=== PATIENT | male | born 1960 | race Caucasian/White ===

== ENCOUNTER 2019-03-06 01:30 | Emergency (ER) | payer MEDICARE, SELFPAY ==
[2019-03-06 01:31] VITALS: BP 134/86; PULSE 89; RESP 16; TEMP 36.7; O2SAT 96; BMI 21.6
--- NOTE | 2019-03-06 02:07 | ED.DCSUM_ITS ---
History of Present Illness Chief Complaint: Mental Health Informant: Patient, Family Onset: - - 3 to 4 days Narrative: Patient presents with daughter. Patient has a history of bipolar disorder and is on Risperdal. They were in [place] last week visiting family and daughter states that he was doing very well. After returning home she has noted change in his behavior. He has not been able to sleep for the last 3 or 4 days and seems to be more anxious and antsy. He does note that he has not taken his Risperdal for at least 2 days. He did take a dose before coming into night. Daughter wanted the patient to be evaluated just to ensure there is nothing else going on. - Past Medical History (1) Bipolar disorder Status: Acute (2) Hypothyroidism Status: Acute Past Medical History - Allergies and Home Meds Allergies/Adverse Reactions: Allergies No Known Allergies Allergy (Verified 03/06/19 01:33) Primary Care Physician: Joe Landry III, MD [Primary Care Provider] - Prior records reviewed: Yes Past Medical History: - - Reviewed Smoking Status: Current every day smoker Review of Systems General: Denies: Chills, Fever Cardiovascular: Denies: Chest pain, Palpitations Respiratory: Denies: Dyspnea, Cough, Sputum Gastrointestinal: Denies: Abdominal pain, Nausea, Vomiting, Diarrhea Musculoskeletal: Reports: Myalgias Psych: Reports: Anxiety Physical Exam Vital Signs/Narrative: Vital Signs Temp Pulse Resp BP Pulse Ox 03/06/19 01:31 98.0 F 89 16 134/86 H 96 General: Well nourished, Well developed Neck: Supple Cardiovascular: Regular rate, Regular rhythm Respiratory: No distress, CTA bilaterally Abdomen: Soft, Nontender Neurological: Alert Psychological: - - Patient appears somewhat anxious and is rating his hands frequently. He is attentive and answers questions appropriately. He denies current hallucinations to me, but states his daughter tells him sometimes he talks to people that are not there. Diagnostic/Tx/Re-eval Laboratory Tests 03/06/19 03/06/19 03/06/19 Range/Units 03:10 02:15 02:15 WBC 5.9 (4.4-11.0) K/mm3 RBC 3.72 L (4.6-6.2) M/mm3 Hgb 11.9 L (13.0-16.5) g/dl Hct 35.0 L (40-54) % MCV 94.1 H (80-94) fL MCH 32.0 (27.0-32.0) pg MCHC 34.0 (32-36) g/gl RDW 13.5 (11.6-14.6) % RDW Differential 44.6 H (35.1-43.9) fl Plt Count 297 (150-450) K/mm3 MPV 8.2 (6.2-12.0) fl Immature Gran % (Auto) 0.000 (0.0-0.9) % Neut % (Auto) 45.9 L (47-70) % Lymph % (Auto) 35.7 (19-41) % Tucker % (Auto) 13.5 H (0-10) % Eos % (Auto) 4.2 (0-5) % Baso % (Auto) 0.7 (0-1) % Absolute Neuts (auto) 2.7 (2.0-7.7) X10^3/uL Absolute Lymphs (auto) 2.11 (0.83-4.51) X10^3/ul Total Counted Not Reportable Sodium 140 (136-145) mmol/L Potassium 3.8 (3.5-5.1) mmol/L Chloride 107 (98-107) mmol/L Carbon Dioxide 27.0 (21.0-32.0) mmol/L Anion Gap 6 (5-15) BUN 14 (7-18) mg/dL Creatinine 0.95 (0.70-1.30) mg/dL Estim Creat Clear Calc 84.16 ml/min Est GFR (MDRD) Af Amer 104 (>60) mL/min Est GFR (MDRD) Non-Af 86 (>60) mL/min BUN/Creatinine Ratio 14.7 (10-20) RATIO Glucose 91 (74-106) mg/dL Calcium 8.8 (8.5-10.1) mg/dL Urine Color Yellow (Yellow) Urine Clarity Clear (Clear) Urine pH 6.0 (5.0 - 8.0) Ur Specific Mobile 1.015 (1.002-1.030) Urine Protein Negative (Negative) mg/dl Urine Glucose (UA) Normal (Normal) mg/dl Urine Ketones Negative (Negative) mg/dl Urine Occult Blood Negative (Negative) /ul Urine Nitrite Negative (Negative) Urine Bilirubin Negative (Negative) mg/dL Urine Urobilinogen Normal (Normal) mg/dl Ur Leukocyte Esterase Negative (Negative) /ul Urine RBC 0 SEEN (0-5) /hpf Urine WBC 0 SEEN (0-5) /hpf Ur Squamous Epith Cells 0 SEEN (0-5) /hpf Urine Bacteria RARE (None Seen) /hpf Urine Mucus RARE (<or=2+) /hpf - Medical Decision Making On repeat evaluation patient is sleeping comfortably. Daughter states he does seem to be improving. She will ensure that he gets his Risperdal. I did speak with Letha, the counselor from the counseling center that was here [facility]. She was given the patient's information. They will follow-up with him. ED Disposition - Plan for ED Patient: Disposition: Home or Assisted Living Diagnosis: Bipolar 1 disorder Instructions: Bipolar Disorder Referrals: Joe Landry III, MD [Primary Care Provider] - Counseling,Center [GROUP OF PHYSICIANS] - 1-2 Days if not improving
[2019-03-06] MEDS: 0.9% Normal Saline 1,000 ML 1000 ML IV (02:22)
[2019-03-06 02:26] LABS: Absolute Lymphocyte Count 2.11 X10^3/ul (0.83-4.51); Absolute Neutrophil Count 2.7 X10^3/uL (2.0-7.7); Basophil# 0.04 X10^3/uL; Basophil% 0.7 % (0-1); Eosinophil# 0.25 X10^3/uL; Eosinophils% 4.2 % (0-5); Hemoglobin 11.9 g/dl (13.0-16.5); Lymphocyte # 2.11 X10^3/ul (4.0); Lymphocyte % 35.7 % (19-41); Mean Corpuscular Volume 94.1 fL (80-94); Mean Platelet Vol. 8.2 fl (6.2-12.0); Monocyte% 13.5 % (0-10); Neutrophil # 2.71 X10^3/uL (2.7-7.7); Neutrophil % 45.9 % (47-70); POSITIVE COUNT NO; POSITIVE DIFFERENTIAL NO; POSITIVE MORPHOLOGY NO; Platelet Count 297 K/mm3 (150-450); RBC Distribution Width CV 13.5 % (11.6-14.6); RBC Distribution Width SD 44.6 fl (35.1-43.9); Red Blood Count 3.72 M/mm3 (4.6-6.2); White Blood Count 5.9 K/mm3 (4.4-11.0)
[2019-03-06 02:37] LABS: Anion Gap 6 (5-15); BUN 14 mg/dL (7-18); BUN/Creat Ratio 14.7 RATIO (10-20); Calcium,Total 8.8 mg/dL (8.5-10.1); Chloride 107 mmol/L (98-107); Creatinine, Serum 0.95 mg/dL (0.70-1.30); EST Glomerular Filtration Rate 86 mL/min (>60); Est Glom Filt Rate - Afr Amer 104 mL/min (>60); Estimated Creatinine Clearance 84.16 ml/min; Glucose 91 mg/dL (74-106); Potassium 3.8 mmol/L (3.5-5.1); Sodium Level 140 mmol/L (136-145)
[2019-03-06 03:17] LABS: Red Blood Cells-Urine 0 SEEN /hpf (0-5); Squamous Epithelial Cells - UA 0 SEEN /hpf (0-5); White Blood Cells 0 SEEN /hpf (0-5)
[2019-03-06 03:18] LABS: Color, Urine Yellow (Yellow); Glucose, Dipstick Normal (Normal); Ketone-Dipstick Negative (Negative); Leukocyte Esterase-Dipstick Negative /ul (Negative); Nitrite-Dipstick Negative (Negative); Occult Blood-Urine Negative /ul (Negative); Protein-Dipstick Negative (Negative); Specific Gravity, Urine 1.015 (1.002-1.030); Urine Bilirubin Dipstick Negative (Negative); Urine Clarity Clear (Clear); Urine Urobilinogen Normal (Normal)
[2019-03-06 03:33] LABS: Bacteria RARE /hpf (None Seen); Mucous, Urine RARE /hpf (<or=2+)
[2019-03-06 03:43] VITALS: BP 127/84; PULSE 85; RESP 17; O2SAT 100
== END 2019-03-06 03:43 | disposition home or self-care (01) ==
PROVIDERS: Emergency Provider Emergency Medicine; Family Provider Family Medicine; PCP Family Medicine
DX: F31.9 Bipolar disorder, unspecified (principal); E03.9 Hypothyroidism, unspecified; F41.9 Anxiety disorder, unspecified; F17.200 Nicotine dependence, unspecified, uncomplicated; Z79.899 Other long term (current) drug therapy
CPT/HCPCS: 80048; 81001; 85025; 99285; A4216

== ENCOUNTER 2021-08-21 17:40 | Inpatient (IN) | payer MEDICARE, SELFPAY ==
[2021-08-21] VITALS (9 sets, daily range): BP systolic 94; BP diastolic 73; PULSE 79–91; RESP 15–20; TEMP 36.3; O2SAT 84–97; BMI 22.1
--- NOTE | 2021-08-21 19:32 | RAD_ITS ---
INDICATION: cough EXAMINATION/TECHNIQUE: X-RAY - XR Chest 1 View COMPARISON: None. FINDINGS: Chronic lung changes. No acute lung findings. The cardiomediastinal silhouette is unremarkable. No pleural effusion or pneumothorax. No acute osseous abnormalities. RAD/Chest 1 View (Portable) IMPRESSION: No acute radiographic abnormalities. Chronic lung changes. Electronically Signed: Clark Matt MD at 20:04 EST Tel , Service support ,
--- NOTE | 2021-08-21 19:34 | EX.ED.DYSGE1 ---
HPI History of Present Illness Chief Complaint: Shortness of Breath Informant: patient Onset/Context/Timing Onset: Weeks Context: Gradual Onset Timing: Waxes and wanes Current Severity: Moderate Maximum Severity: Moderate Narrative Narrative: Patient presents with 2 to 3 weeks shortness of breath and cough. He states he was seen at the urgent care. A Covid test was not done. He did have a chest x-ray that he was told was clear. He was put on prednisone for a few days which did help his symptoms, but as soon as the steroids stopped he became more short of breath again. He now reports significant shortness of breath with any exertion. He has subjective fevers and chills. He is coughing up white sputum. Denies chest pain. He reports poor p.o. intake and decreased appetite. [facility] Medical History Bipolar 1 disorder Home Medications citalopram 20 mg PO DAILY 03/06/19 [History Last Taken Unknown] risperidone 2 mg PO DAILY 03/06/19 [History Last Taken Unknown] doxycycline monohydrate 100 mg PO BID #20 cap 08/21/21 [Rx Last Taken Unknown] prednisone 40 mg PO DAILY #8 tab 08/21/21 [Rx Last Taken Unknown] Allergy/AdvReac Type Severity Reaction Status Date / Time No Known Allergies Allergy Verified 08/21/21 17:41 Social History Smoking Status: Current every day smoker tobacco type: cigarettes ROS ROS ED Constitutional Constitutional ED: Reports chills, fever(s) and subjective Eyes Eyes: Denies change in vision ENT ENT ED: Denies rhinorrhea or sore throat Cardiovascular Cardiovascular: Denies chest pain Respiratory/Chest Respiratory/Chest: Reports cough, dyspnea and sputum Gastrointestinal Gastrointestinal: Denies abdominal pain, diarrhea, nausea or vomiting Genitourinary Genitourinary ED: Denies dysuria Musculoskeletal Musculoskeletal: Denies back pain Integumentary Denies rash Neurologic Neurologic: Denies headache(s) or weakness Allergic/Immunologic Allergic/Immunologic ED: Denies urticaria EXAM Physical Exam Const Vital Signs: 08/21/21 17:41 08/21/21 18:59 08/21/21 20:00 Temperature 97.4 F L Temperature Source Temporal Pulse Rate 91 87 85 Respiratory Rate 20 H 20 H 15 Respiratory Effort Short of Breath Respiratory Depth Normal Respiratory Pattern Normal Blood Pressure 94/73 Blood Pressure Mean 80 Pulse Ox 97 93 93 Oxygen Delivery Method Room Air Room Air Room Air Oxygen Flow Rate (L/min) 08/21/21 22:13 08/21/21 22:14 08/21/21 22:32 Temperature Temperature Source Pulse Rate 83 Respiratory Rate 18 Respiratory Effort Respiratory Depth Respiratory Pattern Normal Blood Pressure Blood Pressure Mean Pulse Ox 88 92 Oxygen Delivery Method Room Air Nasal Cannula Oxygen Flow Rate (L/min) 2 08/21/21 23:09 08/21/21 23:30 08/21/21 23:46 Temperature Temperature Source Pulse Rate 79 Respiratory Rate 19 H Respiratory Effort Respiratory Depth Respiratory Pattern Blood Pressure Blood Pressure Mean Pulse Ox 92 94 94 Oxygen Delivery Method Room Air Nasal Cannula Oxygen Flow Rate (L/min) 2 08/22/21 00:09 Temperature 98.1 F Temperature Source Temporal Pulse Rate 79 Respiratory Rate 19 H Respiratory Effort Respiratory Depth Respiratory Pattern Blood Pressure 110/70 Blood Pressure Mean 83 Pulse Ox 92 Oxygen Delivery Method Nasal Cannula Oxygen Flow Rate (L/min) 2 Positive well nourished and well developed General Appearance ED: well developed HEENT Reports moist mucous membranes Eyes PERRL and EOMs intact bilaterally Neck supple Chest Wall inspection of chest normal and palpation of chest normal Resp normal respiratory effort and clear to auscultation bilaterally Cardio regular rate and regular rhythm GI non-tender Palpation: soft Extremity normal to inspection Neuro oriented x3 Sensorium / Orientation: alert Psych mental status grossly normal Skin no rashes or lesions noted MDM MDM MDM Narrative Medical decision making narrative: Lab work, Covid PCR, chest x-ray obtained. Lab Data Attestation: I reviewed the patient's lab results. Labs: Laboratory Results - last 24 hr 08/21/21 08/21/21 08/21/21 19:06 19:06 19:41 WBC 6.9 RBC 3.71 L Hgb 12.6 L Hct 38.0 L MCV 102.4 H MCH 34.0 H MCHC 33.2 RDW Std Deviation 50.2 H RDW Coeff of Breanne 13.2 Plt Count 248 MPV 9.5 Immature Gran % (Auto) 0.300 Neut % (Auto) 62.1 Lymph % (Auto) 21.5 [place] % (Auto) 12.1 H Eos % (Auto) 3.6 Baso % (Auto) 0.4 Absolute Neuts (auto) 4.3 Absolute Lymphs (auto) 1.48 Nucleated RBC % 0 Sodium 138 Potassium 5.2 H Chloride 105 Carbon Dioxide 28.0 Anion Gap 5 BUN 17 Creatinine 1.07 Estim Creat Clear Calc 69.77 Est GFR (MDRD) Af Amer 90 Est GFR (MDRD) Non-Af 75 BUN/Creatinine Ratio 15.9 Glucose 93 Calcium 9.0 COVID-19 (AMANDA) Not Detected Radiography Chest X-Ray - ED: 1 View, Read by ED Physician and Chronic Changes Diagnostic Testing: Clinical Impression(s) from Imaging Studies Chest X-Ray 08/21/21 19:32 IMPRESSION: No acute radiographic abnormalities. Chronic lung changes. Electronically Signed: Clark Matt MD at 20:04 EST Tel , Service support , Treatment and Re-Evaluation Comments:: On repeat evaluation patient resting comfortably. He is now on 2 L nasal cannula. He is given a DuoNeb treatment along with albuterol aerosols. He is then taken off of nasal cannula and is satting 90 to 91% on room air. He does not want to stay in the hospital. He will be treated with albuterol, prednisone, doxycycline. Although he denies known history of COPD he is a long-term smoker and I do suspect he has some underlying COPD. Addendum: Nursing staff got the patient's IV out and got him ready to leave. As he was walking out of the hospital he felt very short of breath and winded. Nurse had him sit down and checked his pulse ox. He was at 82% on room air. He is currently on 2 L and satting 91%. He does agree at this time to stay in the hospital. I will speak with hospitalist. Discharge Plan Triage Chief Complaint: Shortness of Breath ED Provider: Alethea Cornejo Dx/Rx/DC Orders Clinical Impression: Bronchitis Primary Care Provider: Ziggy Landry
[2021-08-21 19:39] LABS: Absolute Lymphocyte Count 1.48 X10^3/uL (0.83-4.51); Absolute Neutrophil Count 4.3 X10^3/uL (2.0-7.7); Basophil# 0.03 X10^3/uL; Basophil% 0.4 % (0-1); Eosinophil# 0.25 X10^3/uL; Eosinophils% 3.6 % (0-5); Hemoglobin 12.6 g/dL (13.0-16.5); Lymphocyte # 1.48 X10^3/ul (0.83-4.51); Lymphocyte % 21.5 % (19-41); Mean Corp Hgb Conc 33.2 g/dL (32-36); Mean Corpuscular Volume 102.4 fL (80-94); Mean Platelet Vol. 9.5 fl (6.2-12.0); Monocyte# 0.83 X10^3/uL; Monocyte% 12.1 % (0-10); NRBC Flagged by Analyzer 0 % (0-5); Neutrophil # 4.27 X10^3/uL (2.7-7.7); Neutrophil % 62.1 % (47-70); Platelet Count 248 K/mm3 (150-450); RBC Distribution Width CV 13.2 % (11.6-14.6); RBC Distribution Width SD 50.2 fl (35.1-43.9); Red Blood Count 3.71 M/mm3 (4.6-6.2); White Blood Count 6.9 K/mm3 (4.4-11.0)
[2021-08-21 19:53] LABS: Anion Gap 5 (5-15); BUN 17 mg/dL (7-18); BUN/Creat Ratio 15.9 RATIO (10-20); Chloride 105 mmol/L (98-107); Creatinine, Serum 1.07 mg/dL (0.70-1.30); EST Glomerular Filtration Rate 75 mL/min (>60); Est Glom Filt Rate - Afr Amer 90 mL/min (>60); Estimated Creatinine Clearance 69.77 ml/min; Glucose 93 mg/dL (74-106); Potassium 5.2 mmol/L (3.5-5.1); Sodium Level 138 mmol/L (136-145)
[2021-08-21] MEDS: Albuterol 2.5 MG/3 ML VIAL.NEB. INHALATION ×2 (22:31)
[2021-08-21] MEDS: MethylPREDNISolone 125 MG/2 ML Vial 80 MG IV (22:31)
[2021-08-21] MEDS: Ipratropium/Albuterol Sulfate 3 ML AMPUL.NEB INHALATION (22:31)
[2021-08-21] MEDS: Doxycycline 100 MG CAPSULE PO (23:25)
--- NOTE | 2021-08-21 23:44 | ED.RN ---
IV was d/c, pt got dressed and was beginning to leave. Became short of breath. O2 84% on RA. O2 applied up to 93%
[2021-08-22] VITALS (9 sets, daily range): BP systolic 92–130; BP diastolic 60–79; PULSE 79–97; RESP 16–20; TEMP 36.6–37.2; O2SAT 91–95; BMI 19.3
--- NOTE | 2021-08-22 00:22 | HP.PCM_ITS ---
HPI - General General Date of Admission: 08/22/21 HPI Narrative BRENDA ARDON, is a 61 M who presents to the emergency room with shortness of breath and cough. Patient has no significant past medical history of COPD but does smoke 5 cigarettes daily for several years. Patient was treated in the emergency room with doxycycline methylprednisolone and breathing treatments along with oxygen therapy and was set to be discharged however on his way out of the emergency room he desatted to 81% on room air and came back in and agreed to be admitted. Patient also has significant past medical history of high anxiety and bipolar disorder for which she is seen by psychiatry. It had been reported to me that the patient was Covid negative ,however, I do not see result when evaluating the chart and will order one if one has not been done. [facility] Medical History Bipolar 1 disorder Home Medications citalopram 20 mg PO DAILY 03/06/19 [History Last Taken Unknown] risperidone 2 mg PO DAILY 03/06/19 [History Last Taken Unknown] doxycycline monohydrate 100 mg PO BID #20 cap 08/21/21 [Rx Last Taken Unknown] prednisone 40 mg PO DAILY #8 tab 08/21/21 [Rx Last Taken Unknown] Allergy/AdvReac Type Severity Reaction Status Date / Time No Known Allergies Allergy Verified 08/21/21 17:41 Social History Smoking Status: Current every day smoker tobacco type: cigarettes ROS Constitutional Constitutional: Reports chills and fatigue; Denies fever(s) Eyes Eyes: Denies blurry vision ENT HEENT: Denies abnormal hearing Cardiovascular Cardiovascular: Denies chest pain Respiratory/Chest Respiratory/Chest: Reports shortness of breath with exertion and wheezing Gastrointestinal Gastrointestinal: Denies abdominal pain Genitourinary Genitourinary: Denies dysuria Musculoskeletal Musculoskeletal: Denies back pain Integumentary Integumentary: Denies dry skin Neurologic Neurologic: Denies abnormal gait Psychiatric Psychiatric: Reports anxiety Vital Signs Vital Signs Vital Signs: 08/21/21 17:41 08/21/21 18:59 08/21/21 20:00 Temperature 97.4 F L Temperature Source Temporal Pulse Rate 91 87 85 Respiratory Rate 20 H 20 H 15 Respiratory Effort Short of Breath Respiratory Depth Normal Respiratory Pattern Normal Blood Pressure 94/73 Blood Pressure Mean 80 Pulse Ox 97 93 93 Oxygen Delivery Method Room Air Room Air Room Air Oxygen Flow Rate (L/min) 08/21/21 22:13 08/21/21 22:14 08/21/21 22:32 Temperature Temperature Source Pulse Rate 83 Respiratory Rate 18 Respiratory Effort Respiratory Depth Respiratory Pattern Normal Blood Pressure Blood Pressure Mean Pulse Ox 88 92 Oxygen Delivery Method Room Air Nasal Cannula Oxygen Flow Rate (L/min) 2 08/21/21 23:09 08/21/21 23:30 08/21/21 23:46 Temperature Temperature Source Pulse Rate 79 Respiratory Rate 19 H Respiratory Effort Respiratory Depth Respiratory Pattern Blood Pressure Blood Pressure Mean Pulse Ox 92 94 94 Oxygen Delivery Method Room Air Nasal Cannula Oxygen Flow Rate (L/min) 2 08/22/21 00:09 Temperature 98.1 F Temperature Source Temporal Pulse Rate 79 Respiratory Rate 19 H Respiratory Effort Respiratory Depth Respiratory Pattern Blood Pressure 110/70 Blood Pressure Mean 83 Pulse Ox 92 Oxygen Delivery Method Nasal Cannula Oxygen Flow Rate (L/min) 2 Weight Weight: 150 lb Body Mass Index (BMI) 22.1 Physical Exam Const oriented x3 Constitutional Narrative: psychomotor agitation present almost like chorea seen with [place] General Appearance: cooperative HEENT head/scalp atraumatic Eyes PERRL Neck supple Lymph Lymphatic: no lymphadenopathy noted Resp Effort and Inspection: respiratory distress and labored Auscultation: diminished lung sounds Cardio regular rate, regular rhythm, S1 normal heart sound and S2 normal heart sound GI normal to inspection, nondistended, normoactive bowel sounds Extremity no clubbing, cyanosis or edema Skin General Skin Exam: turgor normal Neuro no focal motor deficits and no sensory deficits noted Neuro Narrative: constant movement Psych Mood & Affect: anxious Results Lab / Micro Data Result Diagrams: 08/21/21 19:06 08/21/21 19:06 Labs: Laboratory Results - last 24 hr 08/21/21 19:06: WBC 6.9, RBC 3.71 L, Hgb 12.6 L, Hct 38.0 L, MCV 102.4 H, MCH 34.0 H, MCHC 33.2, RDW Std Deviation 50.2 H, RDW Coeff of Breanne 13.2, Plt Count 248, MPV 9.5, Immature Gran % (Auto) 0.300, Neut % (Auto) 62.1, Lymph % (Auto) 21.5, [place] % (Auto) 12.1 H, Eos % (Auto) 3.6, Baso % (Auto) 0.4, Absolute Neuts (auto) 4.3, Absolute Lymphs (auto) 1.48, Nucleated RBC % 0 08/21/21 19:06: Sodium 138, Potassium 5.2 H, Chloride 105, Carbon Dioxide 28.0, Anion Gap 5, BUN 17, Creatinine 1.07, Estim Creat Clear Calc 69.77, Est GFR (MDRD) Af Amer 90, Est GFR (MDRD) Non-Af 75, BUN/Creatinine Ratio 15.9, Glucose 93, Calcium 9.0 08/21/21 19:41: COVID-19 (AMANDA) Not Detected Radiology Impression Chest X-Ray 08/21/21 19:32 IMPRESSION: No acute radiographic abnormalities. Chronic lung changes. Electronically Signed: Clark Matt MD at 20:04 EST Tel , Service support , Assessment & Plan Assessment/Plan (1) Hypoxia: (2) Bipolar disorder: (3) Hypothyroidism: (4) Bronchitis: PLAN: 1. Hypoxia/bronchitis?admit patient to medical surgical floor, Le vaquin 500 mg IV daily, DuoNeb INH every 4 hours, Solu-Medrol 40 mg IV every 8 hours, get rapid Covid test if not done maintain in isolation until resulted 2. Bipolar disorder?continue home medications 3. Hypothyroidism?continue Synthroid 4. DVT prophylaxis?low molecular weight heparin Charges/Coding Visit Charges Inpatient E&M: 06422 Init Hosp L3
[2021-08-22] MEDS: levoFLOXacin IV 500 MG/100 ML BAG 100 MG IV ×2 (01:31→21:53)
--- NOTE | 2021-08-22 02:03 | PCS.PANDOC ---
PANDEMIC DOCUMENTATION INITIATED: Date: 04/10/2021 Time: 39
[2021-08-22 05:41] LABS: Absolute Lymphocyte Count 0.68 X10^3/uL (0.83-4.51); Absolute Neutrophil Count 8.5 X10^3/uL (2.0-7.7); Basophil# 0.02 X10^3/uL; Basophil% 0.2 % (0-1); Hematocrit 35.9 % (40-54); Hemoglobin 11.8 g/dL (13.0-16.5); Lymphocyte # 0.68 X10^3/ul (0.83-4.51); Lymphocyte % 7.1 % (19-41); Mean Corp Hgb Conc 32.9 g/dL (32-36); Mean Corpuscular Hgb 33.4 pg (27.0-32.0); Mean Corpuscular Volume 101.7 fL (80-94); Mean Platelet Vol. 8.9 fl (6.2-12.0); Monocyte# 0.36 X10^3/uL; Monocyte% 3.7 % (0-10); NRBC Flagged by Analyzer 0 % (0-5); Neutrophil # 8.53 X10^3/uL (2.7-7.7); Neutrophil % 88.7 % (47-70); Platelet Count 226 K/mm3 (150-450); RBC Distribution Width CV 13.2 % (11.6-14.6); RBC Distribution Width SD 49.8 fl (35.1-43.9); Red Blood Count 3.53 M/mm3 (4.6-6.2); White Blood Count 9.6 K/mm3 (4.4-11.0)
[2021-08-22 06:02] LABS: Anion Gap 9 (5-15); BUN 21 mg/dL (7-18); BUN/Creat Ratio 16.4 RATIO (10-20); Calcium,Total 8.6 mg/dL (8.5-10.1); Chloride 102 mmol/L (98-107); Creatinine, Serum 1.28 mg/dL (0.70-1.30); EST Glomerular Filtration Rate 61 mL/min (>60); Est Glom Filt Rate - Afr Amer 73 mL/min (>60); Estimated Creatinine Clearance 50.75 ml/min; Glucose 195 mg/dL (74-106); Potassium 4.1 mmol/L (3.5-5.1); Sodium Level 137 mmol/L (136-145)
[2021-08-22] MEDS: 0.9% Saline Lock 10 ML Syringe IV ×3 (06:19→21:53)
[2021-08-22] MEDS: RisperiDONE 2 MG Tablet PO ×2 (10:02→21:54)
[2021-08-22] MEDS: RisperiDONE 1 MG Tablet PO (10:02)
[2021-08-22] MEDS: Citalopram 20 MG Tablet PO (10:03)
[2021-08-22] MEDS: Enoxaparin 40 MG/0.4 ML Syringe SC (10:03)
[2021-08-22] MEDS: Mag Hydrox/Al Hydrox/Simeth 30 ML UDC PO (12:31)
--- NOTE | 2021-08-22 13:00 | CASEMGMT ---
RN CM Face to Face with patient for initial transition planning/care coordination assessment. RN CM introduced self and role at [facility]. Patient lying in bed, alert and oriented. Patient willing to participate in assessment and is able to answer all questions appropriately. Care providers, pharmacy, and demographics verified. Patient wishes to discharge home, denies need for home health at this time. Patient states he has no further needs or concerns at this time. CM to follow for discharge planning needs that may arise. PCP: Frantz Specialists: Dr Grider, psychologist Preferred Pharmacy: [facility] Insurance: [facility] Prescription Benefit: none Living Will/HPOA: none LNOK: daughter, son Living Arrangements: Patient states he is living with son and daughter in law in a single story home with 2 steps to enter. Patient states he is independent at home. Transportation: self/daughter DME/HHC: Patient denies previous HHC or SNF. Patient denies DME in the home. Patient states he has no preferences to DME. Will monitor for home oxygen at discharge. Disposition Plan: Patient to discharge home with family support and follow-up plans in place. Dona COPPOLA, RN, CM
[2021-08-22] MEDS: Benztropine 2 MG Tablet 1 MG PO ×2 (13:23→21:55)
--- NOTE | 2021-08-22 15:04 | NURSING ---
pt noted to be slightly more relaxed. states feels not jumping around as m uch
--- NOTE | 2021-08-22 18:04 | NURSING ---
talked with daughter in law rendon. verbalized concerns: states patient lives with her and her . states pt has been having issues with diarrhea and has been living off immodium and ensure. states that pt has actually been avoiding regular food because he gets hiccups every times he eats to the point of throwing up. stated patient was recently in hospital and did not follow up and wants to see if a case folder will see patient and ensure followups are made. assure daughter in law rendon that above concerns would be passed on.
--- NOTE | 2021-08-22 20:04 | PCM.HOSP.N ---
Hospitalist Note Patient was seen and examined briefly today, he has what appears to be a movement disorder-I am questioning whether this could be tar dive dyskinesia, patient states that he does not have this regularly, I do not have any information from his psychologist/psychiatrist at this time, I will have to make contact with them tomorrow. I talked briefly with his daughter renata, she states that she is not sure that he is taking medications correctly because he will not discuss this with her. She states that he lives with her brother and his , according to the patient's daughter, patient would not allow his brother and [id number] to come visit him renata. For now, I will continue the patient's present medications, I increase the patient's Risperdal this morning due to what appeared to be anxiety in the patient.
[2021-08-23] MEDS: Mag Hydrox/Al Hydrox/Simeth 30 ML UDC PO (01:06)
[2021-08-23] MEDS: 0.9% Saline Lock 10 ML Syringe IV ×2 (06:00→23:03)
[2021-08-23 06:02] VITALS: BP 132/77; PULSE 89; RESP 20; TEMP 37.2; O2SAT 93
[2021-08-23 09:54] VITALS: BP 104/57; PULSE 90; RESP 16; TEMP 36.7; O2SAT 94
[2021-08-23] MEDS: Benztropine 2 MG Tablet 1 MG PO ×2 (10:00→23:03)
[2021-08-23] MEDS: RisperiDONE 2 MG Tablet PO ×2 (10:00→23:03)
[2021-08-23] MEDS: Citalopram 20 MG Tablet PO (10:00)
[2021-08-23] MEDS: Enoxaparin 40 MG/0.4 ML Syringe SC (10:00)
[2021-08-23 14:06] VITALS: BP 111/60; PULSE 90; RESP 16; TEMP 36.7; O2SAT 92
--- NOTE | 2021-08-23 19:06 | PCM.PN.HOSP ---
Subjective Subjective Patient was seen and examined today, he remains on low-flow nasal cannula oxygen, he appears comfortable at rest, he complains of having chronic diarrhea. Patient requested Imodium today and I placed him on Imodium before each meal. Patient does not seem to have evidence of movements when he is asleep. Objective Data Objective Data Vital Signs: Vital Signs Temp Pulse Resp BP Pulse Ox 98.1 F 90 16 111/60 92 08/23/21 14:06 08/23/21 14:06 08/23/21 14:06 08/23/21 14:06 08/23/21 14:06 Oxygen Flow Rate (L/min) 2 Oxygen Delivery Method Nasal Cannula Weight: 59.2 kg Body Mass Index (BMI) 19.3 Intake & Output: Intake and Output for Last 24 Hours 08/21/21 08/22/21 08/23/21 23:59 23:59 23:59 Intake Total 2250 / 2250 100 / 100 Balance 2250 / 2250 100 / 100 Medical Nutrition Assessment Dietitian: Malnutrition Criteria Met Start: 08/22/21 15:18 Freq: Status: Active Protocol: Document 08/22/21 15:18 AG (Rec: 08/22/21 15:18 AG [id number]) Nutrition Malnutrition Evidence of Malnutrition Exists Yes Malnutrition (severe): Acute Illness/Injury Evidenced By Suboptimal Energy Intake ( Severe),Weight Loss (Severe) Clinical Problem Acute Disease or Injury Related Malnutrition Etiology severe, acute malnutrition r/t inadequate energy intake Signs/Symptoms as evidenced by estimated PO intake meeting <50% of estimated energy needs x 1 month, unintentional wt loss of 24.5#/16% x 1.5 months per pt report Status Active Problem Recommendation Dietitian Recommendations/Changes continue regular diet, ensure enlive 4x/day w/ medpass d/t malnutrition. Lab / Micro Data Result Diagrams: 08/22/21 05:10 08/22/21 05:10 Micro: Microbiology 08/22/21 01:30 Nasal Secretion SARS-CoV-2 Antigen (Rapid) - Final Physical Exam Const alert, oriented x3 and no apparent distress Constitutional Narrative: Patient appears older than his stated age General Appearance: cooperative, well kempt and well developed Orientation / Consciousness: awake, oriented to person, oriented to place and oriented to time HEENT normocephalic, head/scalp atraumatic and moist oral mucous membranes Head and Scalp: normocephalic Eyes conjunctivae normal Neck nuchal rigidity, no JVD and thyroid normal General: trachea midline Resp normal respiratory effort, no retractions, no use of accessory muscles and clear to auscultation bilaterally Auscultation: Negative for rales, rhonchi or wheezes Cardio regular rate, regular rhythm, S1 normal heart sound, S2 normal heart sound, no murmurs, no rub and no gallops GI normal to inspection, nondistended, normoactive bowel sounds, soft to palpation, non-tender and non-distended Extremity normal to inspection and no clubbing, cyanosis or edema Skin no rashes or lesions noted General Skin Exam: no breakdown Neuro CN's II-XII intact bilaterally, no focal motor deficits and no sensory deficits noted Psych thought process normal Psych Narrative: Patient's affect is flat Assessment & Plan Assessment/Plan (1) Hypoxia: PLAN: 1. Acute hypoxic respiratory failure-etiology unclear at this time, possibly secondary to acute URI, patient's respiratory panel at this time is pending, continue IV corticosteroids, aerosol treatments #2 severe protein and caloric malnutrition-as evidenced by p.o. intake meeting less than 50% of estimated energy needs x1 month-nutritional services has seen the patient and modified his diet during his hospitalization, patient will receive Ensure Enlive as a supplement. #3 bipolar disorder-patient is currently on Risperdal, I will attempt to contact the counseling center tomorrow to see if he is compliant with his outpatient visits. #4 hypothyroidism-patient is currently receiving Synthroid #5 acute bronchitis-etiology unclear at this point, patient is currently receiving Levaquin, I will change this to oral administration. #6 movement disorder-etiology unclear at this point, I have placed the patient on Cogentin due to concerns of possible tardive dyskinesia Charges/Coding Visit Charges Inpatient E&M: 11783 Subs Hosp L2
[2021-08-23] MEDS: Loperamide 2 MG Capsule PO (20:49)
[2021-08-23 20:51] VITALS: BP 117/75; PULSE 97; RESP 16; TEMP 37.3; O2SAT 94
[2021-08-24 02:52] VITALS: BP 142/89; PULSE 88; RESP 16; TEMP 36.6; O2SAT 93
[2021-08-24] MEDS: Mag Hydrox/Al Hydrox/Simeth 30 ML UDC PO ×2 (02:54→10:39)
[2021-08-24] MEDS: 0.9% Saline Lock 10 ML Syringe IV ×4 (05:45→21:37)
[2021-08-24] MEDS: Levothyroxine 112 MCG Tablet PO (05:45)
[2021-08-24] MEDS: levoFLOXacin 500 MG Tablet PO (05:45)
[2021-08-24] MEDS: Loperamide 2 MG Capsule PO ×3 (06:13→15:53)
--- NOTE | 2021-08-24 07:25 | CT_ITS ---
STUDY: CTA CHEST REASON FOR EXAM: Male, 61 years old. Hypoxia RADIATION DOSAGE (If Supplied By Facility): CTDIvol = ( 4.43 ) mGy, DLP = ( 163.54 ) mGycm TECHNIQUE: The examination was performed with the intravenous administration of IV 100mL Isovue-370. Post-processing of the angiographic images was performed, with multiplanar reformation and 3D reconstruction. Individualized dose optimization techniques were used for this CT. COMPARISON: None. FINDINGS: Normal enhancement of the main pulmonary artery and right and left pulmonary arteries. Normal enhancement of the bilateral peripheral pulmonary arteries. There is no demonstrated pulmonary embolism. Normal thoracic aorta and visualized great vessels. There is no demonstrated aortic dissection. Normal heart and pericardium. There are calcifications of the coronary arteries. Normal mediastinum. Normal hilar regions. There is peribronchial thickening. The lungs are hyper expanded, with flattening of the hemidiaphragms. There are central emphysematous blebs in the bilateral lungs. Subpleural atelectasis in the dependent portion of the right upper lobe and bilateral lower lobes. Normal pleura. Normal chest wall structures. There are degenerative changes of thoracic spine. Normal visualized upper abdomen. CT/CTA Chest W/WO Contrast IMPRESSION: 1. No central or segmental pulmonary embolism. 2. Bronchial wall thickening with dependent atelectasis, possible infectious bronchiolitis/bronchitis. Electronically Signed: Curtis Berger MD (Brooks) at 8:44 EST , Service support ,
[2021-08-24 09:10] LABS: BNP,B-Type NATRIURETIC PEPTIDE 27.7 pg/mL (0-100)
[2021-08-24] MEDS: Enoxaparin 40 MG/0.4 ML Syringe SC (09:21)
[2021-08-24] MEDS: proCHLORPERazine 10 MG/2 ML Vial IV (10:25)
[2021-08-24] MEDS: RisperiDONE 2 MG Tablet PO ×2 (10:39→21:37)
[2021-08-24] MEDS: Citalopram 20 MG Tablet PO (10:39)
[2021-08-24 11:18] VITALS: BP 120/79; PULSE 85; RESP 16; TEMP 36.6; O2SAT 95
--- NOTE | 2021-08-24 15:39 | CASEMGMT ---
RAINER SALINAS in to discuss home oxygen at discharge. Patient states he has no preferences and is agreeable to [facility] after review list and companies that have oxygen available this weekend. RN RITA verified patient's address where he is staying [address], [place] [address]. Green sheet placed on patients chart.
[2021-08-24 15:47] VITALS: BP 122/82; PULSE 85; RESP 16; TEMP 36.8; O2SAT 98
[2021-08-24] MEDS: Benztropine 2 MG Tablet 1 MG PO ×2 (15:53→21:37)
--- NOTE | 2021-08-24 20:10 | PCM.PN.HOSP ---
Subjective Subjective Patient was seen and examined today, I had a CTA of the chest performed on the patient which showed emphysematous changes and evidence of bronchitis, patient is still requiring supplemental oxygen at 2 L/min. Patient's beta natruretic peptide was not elevated. Patient appeared comfortable at rest of this examiner today, patient did not have any limb movement today that had been abnormal the past few days. Objective Data Objective Data Vital Signs: Vital Signs Temp Pulse Resp BP Pulse Ox 98.3 F 85 16 122/82 H 98 08/24/21 15:47 08/24/21 15:47 08/24/21 15:47 08/24/21 15:47 08/24/21 15:47 Oxygen Flow Rate (L/min) 2 Oxygen Delivery Method Nasal Cannula Weight: 59.2 kg Body Mass Index (BMI) 19.3 Intake & Output: Intake and Output for Last 24 Hours 08/22/21 08/23/21 08/24/21 23:59 23:59 23:59 Intake Total 2250 / 2250 100 / 100 200 / 200 Balance 2250 / 2250 100 / 100 200 / 200 Medical Nutrition Assessment Dietitian: Malnutrition Criteria Met Start: 08/22/21 15:18 Freq: Status: Active Protocol: Document 08/22/21 15:18 AG (Rec: 08/22/21 15:18 AG [id number]) Nutrition Malnutrition Evidence of Malnutrition Exists Yes Malnutrition (severe): Acute Illness/Injury Evidenced By Suboptimal Energy Intake ( Severe),Weight Loss (Severe) Clinical Problem Acute Disease or Injury Related Malnutrition Etiology severe, acute malnutrition r/t inadequate energy intake Signs/Symptoms as evidenced by estimated PO intake meeting <50% of estimated energy needs x 1 month, unintentional wt loss of 24.5#/16% x 1.5 months per pt report Status Active Problem Recommendation Dietitian Recommendations/Changes continue regular diet, ensure enlive 4x/day w/ medpass d/t malnutrition. Lab / Micro Data Result Diagrams: 08/22/21 05:10 08/22/21 05:10 Labs: Laboratory Results - last 24 hr 08/24/21 08:25: B-Natriuretic Peptide 27.7 Micro: Microbiology 08/22/21 01:30 Nasal Secretion SARS-CoV-2 Antigen (Rapid) - Final Radiography Diagnostic Testing: Radiology Impression Chest CTA 08/24/21 07:25 IMPRESSION: 1. No central or segmental pulmonary embolism. 2. Bronchial wall thickening with dependent atelectasis, possible infectious bronchiolitis/bronchitis. Electronically Signed: Curtis Berger MD (Brooks) at 8:44 EST , Service support , Physical Exam Const alert, oriented x3, no apparent distress and average body habitus Constitutional Narrative: Patient appears older than his stated age General Appearance: cooperative, well kempt and well developed Orientation / Consciousness: awake, oriented to person, oriented to place and oriented to time HEENT normocephalic, head/scalp atraumatic and moist oral mucous membranes Head and Scalp: normocephalic Eyes PERRL, EOMs intact bilaterally and conjunctivae normal Neck nuchal rigidity, supple, no JVD, thyroid normal and no carotid bruits General: trachea midline Lymph Lymphatic: no lymphadenopathy noted Resp normal respiratory effort, no retractions and no use of accessory muscles Resp Narrative: Scattered expiratory wheezes were noted bilaterally Effort and Inspection: respiratory distress and labored Auscultation: wheezes; Negative for rales or rhonchi Cardio regular rate, regular rhythm, S1 normal heart sound, S2 normal heart sound, no murmurs, no rub and no gallops GI normal to inspection, nondistended, normoactive bowel sounds, soft to palpation, non-tender and non-distended Extremity no clubbing, cyanosis or edema Skin no rashes or lesions noted General Skin Exam: no breakdown Neuro oriented x3, CN's II-XII intact bilaterally, no focal motor deficits and no sensory deficits noted Neuro Narrative: constant movement Sensorium / Orientation: awake and alert Speech: speech normal Psych thought process normal and affect normal Psych Narrative: Patient's affect is flat Mood & Affect: anxious Assessment & Plan Assessment/Plan (1) Bipolar disorder: (2) Hypoxia: PLAN: 1. Acute hypoxic respiratory failure-etiology appears to be acute bronchitis on a backdrop of COPD, patient will remain on his current treatment at this time, I will reassess the patient tomorrow for discharge and need for home oxygen. #2 severe protein and caloric malnutrition-as evidenced by p.o. intake meeting less than 50% of estimated energy needs x1 month-nutritional services has seen the patient and modified his diet during his hospitalization, patient will receive Ensure Enlive as a supplement. #3 bipolar disorder-patient is currently on Risperdal #4 hypothyroidism-patient is currently receiving Synthroid #5 acute bronchitis-etiology unclear at this point, patient is currently receiving Levaquin, I will change this to oral administration. #6 movement disorder-etiology unclear at this point, I have placed the patient on Cogentin due to concerns of possible tardive dyskinesia, patient's limb movements have disappeared at this time. Charges/Coding Visit Charges Inpatient E&M: 06251 Subs Hosp L2
[2021-08-24 21:30] VITALS: BP 104/73; PULSE 93; RESP 16; TEMP 36.8; O2SAT 94
[2021-08-25 00:29] VITALS: BP 131/77; PULSE 89; RESP 16; TEMP 36.5; O2SAT 94
[2021-08-25 06:13] VITALS: BP 137/70; PULSE 89; RESP 16; TEMP 36.8; O2SAT 97
[2021-08-25] MEDS: levoFLOXacin 500 MG Tablet PO (06:16)
[2021-08-25] MEDS: Levothyroxine 112 MCG Tablet PO (06:17)
[2021-08-25] MEDS: 0.9% Saline Lock 10 ML Syringe IV ×2 (06:17→13:24)
[2021-08-25] MEDS: Loperamide 2 MG Capsule PO ×2 (06:17→09:09)
[2021-08-25] MEDS: Mag Hydrox/Al Hydrox/Simeth 30 ML UDC PO (09:07)
[2021-08-25] MEDS: Enoxaparin 40 MG/0.4 ML Syringe SC (09:08)
[2021-08-25] MEDS: RisperiDONE 2 MG Tablet PO (09:08)
[2021-08-25] MEDS: Citalopram 20 MG Tablet PO (09:09)
[2021-08-25 09:23] VITALS: BP 121/79; PULSE 90; RESP 18; TEMP 36.9; O2SAT 91
[2021-08-25 09:29] VITALS: O2SAT 80
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
[2021-08-25] MEDS: Benztropine 2 MG Tablet 1 MG PO (13:24)
[2021-08-25 16:33] VITALS: O2SAT 92; O2SAT 94; O2SAT 96
--- NOTE | 2021-08-25 17:05 | PCM.DC ---
Discharge Instructions Diet Discharge Diet: No restrictions Activity Discharge Activity: Return to Normal Activity Weight Bearing Status: Full weight bearing Follow Up Care Test Results: Test results from this visit will be discussed in further detail at your follow-up appointment, if applicable. Discharge Plan Admission Admit Date/Time: 08/22/21 00:30 Primary Reason for Your Visit: bronchitis, hypoxia Attending Provider: Andre Espana Primary Care Provider: Ziggy Landry Instructions Patient Instructions: ED Bronchitis with Wheezing (Adult) Discharge Orders/Prescriptions Prescriptions: New risperidone 2 mg Tablet 2 mg PO BID Qty: 60 RF: 0 levofloxacin 500 mg Tablet 500 mg PO 0600 Qty: 7 RF: 0 benztropine 1 mg tablet 1 mg PO BID Qty: 60 RF: 0 risperidone [Risperdal] 2 mg tablet 2 mg PO BID Qty: 60 RF: 0 albuterol sulfate [Proventil HFA] 90 mcg/actuation HFA aerosol inhaler 2 puff inhalation .QID Qty: 8.5 RF: 0 Continued citalopram 20 tablet 20 mg PO DAILY RF: 0 loperamide 2 mg Capsule 4 mg PO DAILY RF: 0 levothyroxine 112 mcg tablet 112 mcg PO DAILY RF: 0 Discontinued risperidone 2 tablet 2 mg PO DAILY RF: 0 Referrals / Follow Up: Seymour Raman DO [NON-STAFF] - Within 2 Weeks Disposition Disposition (needs filled in before D/C Order can be placed): Home, Self Care
[2021-08-25] MEDS: COVID-19 VAC,AD26(JANSSEN)/PF 0.5 ML SYRINGE IM (17:17)
--- NOTE | 2021-08-27 19:17 | DS.PCM_ITS ---
Providers Date of Admission: 08/22/21 Date of Discharge: 08/25/21 Primary Care Physician: Dr. Ziggy Landry MD Reason For Visit: HYPOXIA BRONCHITIS Diagnosis Discharge Diagnosis (1) Bipolar disorder: Status: Acute Code(s): F31.9 - Bipolar disorder, unspecified (2) Hypoxia: Status: Acute Code(s): R09.02 - Hypoxemia Plan: 1. Acute hypoxic respiratory failure-etiology appears to be acute bronchitis on a backdrop of COPD #2 severe protein and caloric malnutrition-as evidenced by p.o. intake meeting less than 50% of estimated energy needs x1 month-nutritional services has seen the patient and modified his diet during his hospitalization, patient will receive Ensure Enlive as a supplement. #3 bipolar disorder #4 hypothyroidism- #5 acute bronchitis #6 movement disorder-etiology unclear #7 chronic obstructive pulmonary disease Medications at Discharge Home Medications citalopram 20 mg PO DAILY 03/06/19 levothyroxine 112 mcg PO DAILY 08/22/21 loperamide 4 mg PO DAILY 08/22/21 albuterol sulfate [Proventil HFA] 2 puff INHALATION .QID #8.5 g 08/25/21 benztropine 1 mg PO BID #60 tab 08/25/21 levofloxacin 500 mg PO 0600 #7 tab 08/25/21 risperidone 2 mg PO BID #60 tab 08/25/21 risperidone [Risperdal] 2 mg PO BID #60 tab 08/25/21 Hospital Course Operations None Procedures None Summary of Care Provided Minutes Spent on Discharge: 32 Hospital Course: This 61-year-old white male was seen in the emergency room at [facility] with a chief complaint of shortness of breath-he stated was present 2 to 3 weeks along with a cough. Patient had a chest x-ray done in an outpatient urgent care that did not show any evidence of pneumonia. Patient was placed on prednisone for short period of time as an outpatient but became worse after he finished his prednisone. Evaluation in the emergency room included a chest x-ray which showed chronic lung changes, patient did require supplemental oxygen to maintain his pulse ox above 90%. Patient was given DuoNeb aerosol treatments in the emergency room, he was admitted to [place] [address] with acute hypoxic respiratory failure. Over the next several days, patient remained on low-flow oxygen via nasal cannula, the exact etiology of the patient's hypoxia was not well understood, patient had a respiratory panel ordered but due to lack of supplies in the hospital micro department, this was not able to be resulted. Patient was treated with IV corticosteroids and administration of antibiotics. Patient also had a peculiar movement disorder when he was first admitted which lasted for approximately 48 hours, I placed the patient on Cogentin and I also increase the patient's bipolar medication (Ri sperdal) and the spontaneous movements resolved eventually. Patient had a CTA of his chest performed on 08/24/2021 which showed no pulmonary embolism but bronchial wall thickening with dependent atelectasis and possible infectious bronchitis. On 08/25/2021, patient underwent a CT of the chest with oral contrast due to complaints of vomiting after eating-patient had told this examiner that he had had several months worth of difficulty swallowing solid foods at times and and was drinking Ensure at home. Patient did not follow-up with his PCP however despite the symptoms. I performed a CT of the chest with oral contrast to rule out any esophageal blockage, there did not appear to be any evidence of this on the CT. He was instructed to follow-up as an outpatient with his PCP regarding this. On 08/25/2021, patient was seen and examined: On examination he appeared in good health and spirits. Vital signs as documented. Skin warm and dry and without overt rashes. Neck without JVD, neck was supple, trachea midline, thyroid was normal. Lungs clear bilaterally, normal air movement was noted. Heart exam notable for regular rhythm, normal sounds and absence of murmurs, rubs or gallops. Abdomen unremarkable and without evidence of organomegaly, masses, or abdominal aortic enlargement. Bowel sounds are present, abdomen is not distended. Extremities nonedematous, no cyanosis was noted, no clubbing was noted. Neuro: Cranial nerves II through XII are grossly intact, no focal motor deficits were noted, sensation to light touch and pinprick intact, motor exam 5/5 throughout. Psych: Patient is alert and oriented x3, he does not appear anxious or depressed, he does not appear agitated. On 08/25/2021, patient was discharged home stable condition Weight / BMI Weight Weight: 59.2 kg Body Mass Index (BMI) 19.3 ABG / Lab / Microbiology Data Result Diagrams: 08/22/21 05:10 08/22/21 05:10 Microbiology: Microbiology 08/22/21 01:30 Nasal Secretion SARS-CoV-2 Antigen (Rapid) - Final D/C Instructions Discharge Diet: No restrictions Weight Bearing Status: Full weight bearing Meaningful Use Info Meaningful Use Diagnoses (Choose all that apply): None applicable Discharge Plan Admission Admit Date/Time: 08/22/21 00:30 Primary Reason for Your Visit: bronchitis, hypoxia Attending Provider: Andre Espana Primary Care Provider: Ziggy Landry Instructions Patient Instructions: ED Bronchitis with Wheezing (Adult) Discharge Orders/Prescriptions Prescriptions: New risperidone 2 mg Tablet 2 mg PO BID Qty: 60 RF: 0 levofloxacin 500 mg Tablet 500 mg PO 0600 Qty: 7 RF: 0 benztropine 1 mg tablet 1 mg PO BID Qty: 60 RF: 0 risperidone [Risperdal] 2 mg tablet 2 mg PO BID Qty: 60 RF: 0 albuterol sulfate [Proventil HFA] 90 mcg/actuation HFA aerosol inhaler 2 puff inhalation .QID Qty: 8.5 RF: 0 Continued citalopram 20 tablet 20 mg PO DAILY RF: 0 loperamide 2 mg Capsule 4 mg PO DAILY RF: 0 levothyroxine 112 mcg tablet 112 mcg PO DAILY RF: 0 Discontinued risperidone 2 tablet 2 mg PO DAILY RF: 0 Referrals / Follow Up: Seymour Raman DO [NON-STAFF] - Within 2 Weeks Disposition Disposition (needs filled in before D/C Order can be placed): Home, Self Care Charges/Coding Visit Charges Inpatient E&M: 62739 Disch Hosp
== END 2021-08-25 18:03 | disposition home or self-care (01) | DRG 190 ==
LOC: ED 23:21 → MS2 08-22 07:12
PROVIDERS: Admitting Provider Family Medicine; Emergency Provider Emergency Medicine; PCP Surgery; Visit Provider Internal Medicine
DX: J44.0 Chronic obstructive pulmonary disease with (acute) lower respiratory infection (principal); J96.01 Acute respiratory failure with hypoxia; E43 Unspecified severe protein-calorie malnutrition; G25.9 Extrapyramidal and movement disorder, unspecified; J98.11 Atelectasis; J20.9 Acute bronchitis, unspecified; F31.9 Bipolar disorder, unspecified; E03.9 Hypothyroidism, unspecified; K52.9 Noninfective gastroenteritis and colitis, unspecified; R13.10 Dysphagia, unspecified; F17.210 Nicotine dependence, cigarettes, uncomplicated; Z79.899 Other long term (current) drug therapy; Z23 Encounter for immunization
CPT/HCPCS: 0031A; 36415; 71045; 71250; 71275; 80048; 83880; 85025; 87426; 87633; 87635; 91303; 94640; 97803; 99285; 99406; J7040; Q9967; U0005; A4216; U0003

== ENCOUNTER 2021-11-20 19:01 | Emergency (ER) | payer MEDICARE, SELFPAY ==
[2021-11-20 19:01] VITALS: BP 138/79; PULSE 88; RESP 18; TEMP 36.1; O2SAT 99; BMI 21.0
--- NOTE | 2021-11-20 19:32 | EKG12_ITS ---
Test Reason : WEAKNESS Blood Pressure : / mmHG Vent. Rate : 087 BPM Atrial Rate : 087 BPM P-R Int : 134 ms QRS Dur : 084 ms QT Int : 352 ms P-R-T Axes : 080 071 087 degrees QTc Int : 423 ms Normal sinus rhythm Normal ECG Confirmed by KARLEE VALLECILLO, CARLOS ENRIQUE ([id number]), deputy editor in chief VICKY QUEZADA ([id number]) on 11/21/2021 10:31:20 AM Referred By: COLBY Confirmed By:CARLOS ENRIQUE DESIR MD
[2021-11-20 20:18] VITALS: BP 123/85; PULSE 87; RESP 16
[2021-11-20] MEDS: 0.9% Normal Saline 1,000 ML 999 ML IV (20:19)
[2021-11-20 20:30] LABS: Bacteria 0 SEEN /hpf (None Seen); Mucous, Urine 0 SEEN /hpf (<or=2+); Red Blood Cells-Urine 0 SEEN /hpf (0-5); Squamous Epithelial Cells - UA 0 SEEN /hpf (0-5); White Blood Cells 0 SEEN /hpf (0-5)
[2021-11-20 20:37] LABS: Color, Urine Yellow (Yellow); Glucose, Dipstick Normal (Normal); Ketone-Dipstick Negative (Negative); Leukocyte Esterase-Dipstick 25 /ul (Negative); Nitrite-Dipstick Negative (Negative); Occult Blood-Urine Negative /ul (Negative); Protein-Dipstick 30 mg/dl (Negative); Urine Bilirubin Dipstick Negative (Negative); Urine Clarity Clear (Clear); Urine Urobilinogen Normal (Normal)
[2021-11-20 20:40] LABS: Absolute Lymphocyte Count 1.64 X10^3/uL (0.83-4.51); Absolute Neutrophil Count 1.9 X10^3/uL (2.0-7.7); Basophil# 0.03 X10^3/uL; Basophil% 0.7 % (0-1); Eosinophil# 0.19 X10^3/uL; Eosinophils% 4.4 % (0-5); Hematocrit 38.1 % (40-54); Hemoglobin 12.8 g/dL (13.0-16.5); Lymphocyte # 1.64 X10^3/ul (0.83-4.51); Lymphocyte % 37.9 % (19-41); Mean Corp Hgb Conc 33.6 g/dL (32-36); Mean Corpuscular Hgb 33.3 pg (27.0-32.0); Mean Corpuscular Volume 99.2 fL (80-94); Mean Platelet Vol. 8.9 fl (6.2-12.0); Monocyte# 0.59 X10^3/uL; Monocyte% 13.6 % (0-10); NRBC Flagged by Analyzer 0 % (0-5); Neutrophil # 1.87 X10^3/uL (2.7-7.7); Neutrophil % 43.2 % (47-70); Platelet Count 288 K/mm3 (150-450); RBC Distribution Width CV 12.8 % (11.6-14.6); RBC Distribution Width SD 46.2 fl (35.1-43.9); Red Blood Count 3.84 M/mm3 (4.6-6.2); White Blood Count 4.3 K/mm3 (4.4-11.0)
--- NOTE | 2021-11-20 20:52 | CM.ED ---
NATHALIE Note Referral Source: MD Referral Reason: Resources NATHALIE met with patient. Also present in the room was patient's friend, Lizz. Patient gave consent for this content writer to speak in front of Lizz. Patient is sleeping on Lizz's couch. Previously [facility] was in [facility] but had to [facility] 2 years ago. Since he left the senior living the only resources he receives are for psychiatry. Patient is taking his Risperdal but has not been taking Celexa. Patient has not taken Celexa for 2 weeks. Lizz said that patient needs a counselor, patient case manager and housing. NATHALIE advised that patient can speak to Dr. Graves's RN to request services. Lizz said your a social work assistant.. it will mean more coming from you. NATHALIE said that is not accurate but this content writer will call [facility] to verify. NATHALIE spoke to Zofia. Zofia said that patient needs to call and request services himself. NATHALIE provided patient with counseling resources, [employer], number for homeless navigator, list reminding him to slate picker Celexa and also to call Dr. Gabriel's office. NATHALIE advised that [facility] staff, Zofia, said for patient to call for additional services. Resource provided to patient with list of who to call and to [facility]. NATHALIE asked patient and Lizz if they had any additional concerns or issues and they said no. Plan: Resources provided Alycia ANLGIN
[2021-11-20 21:00] LABS: AST(SGOT) 26 U/L (15-37); Alanine Aminotransfer ALT/SGPT 40 U/L (16-61); Albumin, Serum 3.5 g/dL (3.2-5.0); Alkaline Phosphatase 69 U/L (45-117); Anion Gap 5 (5-15); BUN 10 mg/dL (7-18); Chloride 102 mmol/L (98-107); Creatinine, Serum 0.83 mg/dL (0.70-1.30); EST Glomerular Filtration Rate 100 mL/min (>60); Est Glom Filt Rate - Afr Amer 121 mL/min (>60); Estimated Creatinine Clearance 85.53 ml/min; Free T3 1.7 pg/mL (2.18-3.98); Globulin 3.6 g/dL (2.2-4.2); Glucose 98 mg/dL (74-106); Lipase 150 U/L (73-393); Potassium 4.1 mmol/L (3.5-5.1); Protein, Total 7.1 g/dL (6.4-8.2); Sodium Level 137 mmol/L (136-145); T4 Free Direct 0.48 ng/dL (0.76-1.46); Troponin-I HS < 3 pg/mL (3.0-78.0)
--- NOTE | 2021-11-20 22:47 | EDS_ITS ---
HPI History of Present Illness Chief Complaint: General Illness Narrative Narrative: 61-year-old male presenting with fatigue. He states he is normally very hyperactive because he has bipolar but states he is feeling more tired. He is not talking as fast as usual he is not as active. He states that he was hospitalized in July at [facility] and after he was discharged she was discharged on Cogentin as well as his risperidone. His Wilder was not continued. He followed up with his primary care physician and never told him he was on Cogentin from the hospital. Since his previous doctor was Dr. Landry and he retired he saw a new physician. He never mentioned to him that he needed medication refills such as Synthroid or risperidone, and Cogentin. Patient has not been taking Cogentin or Synthroid for about 4 months now. He does not have headaches, shortness of breath, fever, chills, cough. He is able to eat and drink but expresses that he is has pain in his throat when he swallows. He was supposed to follow-up with a GI doctor for endoscopy but never made an a ppointment to do so. He is making normal stool. Is drinking and making urine. [facility] Medical History Bipolar 1 disorder Home Medications citalopram 20 mg PO DAILY 03/06/19 [History Last Taken Unknown] loperamide 4 mg PO DAILY 08/22/21 [History Last Taken Unknown] albuterol sulfate [Proventil HFA] 2 puff INHALATION .QID #8.5 g 08/25/21 [Rx Last Taken Unknown] benztropine 1 mg PO BID #60 tab 08/25/21 [Rx Last Taken Unknown] levofloxacin 500 mg PO 0600 #7 tab 08/25/21 [Rx Last Taken Unknown] risperidone 2 mg PO BID #60 tab 08/25/21 [Rx Last Taken Unknown] risperidone [Risperdal] 2 mg PO BID #60 tab 08/25/21 [Rx Last Taken Unknown] levothyroxine 112 mcg PO DAILY #30 tab 11/20/21 [Rx Last Taken Unknown] levothyroxine [Synthroid] 112 mcg PO DAILY #30 tab 11/20/21 [Rx Last Taken Unknown] Allergy/AdvReac Type Severity Reaction Status Date / Time naproxen [From Aleve] Allergy Hives Verified 03/28/22 19:04 Social History Smoking Status: Current every day smoker tobacco type: cigarettes ROS ROS ED Constitutional Constitutional ED: Denies chills or fever(s) Eyes Eyes: Denies blurry vision or diplopia ENT ENT ED: Denies rhinorrhea or sore throat Cardiovascular Cardiovascular: Reports chest pain; Denies palpitations Respiratory/Chest Respiratory/Chest: Denies cough or dyspnea Gastrointestinal Gastrointestinal: Denies abdominal pain, nausea or vomiting Genitourinary Genitourinary ED: Denies dysuria or hematuria Musculoskeletal Musculoskeletal: Denies arthralgias, myalgias or neck pain Integumentary Denies rash Neurologic Neurologic: Denies headache(s), paresthesias or weakness Psychiatric Psychiatric: Denies anxiety or depression EXAM Physical Exam Const Vital Signs: 11/20/21 19:01 11/20/21 20:18 11/20/21 20:24 Temperature 96.9 F L Temperature Source Temporal Pulse Rate 88 87 Respiratory Rate 18 16 Respiratory Effort Normal Respiratory Pattern Normal Blood Pressure 138/79 H 123/85 H Blood Pressure Mean 98 97 Pulse Ox 99 Oxygen Delivery Method Room Air Positive well nourished General Appearance ED: NAD; Negative for pallor HEENT Reports moist mucous membranes Negative for trauma Eyes PERRL and EOMs intact bilaterally Chest Wall inspection of chest normal Resp normal respiratory effort and clear to auscultation bilaterally Cardio regular rate and regular rhythm GI normal to inspection, nondistended, normoactive bowel sounds Extremity normal to inspection General Extremety ED: Negative for tenderness Neuro oriented x3 and CN's II-XII intact bilaterally Sensorium / Orientation: alert and orientation impaired Motor Exam: strength 5/5 throughout Psych mental status grossly normal Skin General Skin Exam: Negative for jaundice or pallor MDM MDM MDM Narrative Medical decision making narrative: 61-year-old male presenting with generalized weakness and fatigue. It appears he is not been taking his medications. Has been noncompliant with follow-up for GI due to his difficulty swallowing. Says he does report lots of pain in his chest I did obtain an EKG which is a sinus rhythm with a ventricular of 87 bpm without sign of ischemic change or dysrhythmia my interpretation. Chest x-ray on my interpretation does not show any acute cardiopulmonary process and radiologist agree. CBC shows a white blood count of 4.3 which is baseline for him. His hemoglobin is stable at 12.8. Platelets 288. Renal function electrolytes are normal. High-sensitivity troponin less than 3. I did obtain thyroid studies and his TSH is 12.7, T3 1.7, T4 0.48. I do believe this is likely the source of his fatigue. I counseled him that he would need to restart his Synthroid and give him a prescription for this. I also counseled him that when he follows up with his new doctor that he has to report to him the medications that he is on and needs refills for. He is also counseled to make his GI appointment and reschedule his upper endoscopy. I believe patient stable for discharge at this time. Impression: 1. Generalized weakness 2. Elevated TSH 3. Hypothyroidism 4. Leukopenia 5. Anemia Lab Data Attestation: I reviewed the patient's lab results. Labs: Laboratory Results - last 24 hr 11/20/21 11/20/21 11/20/21 19:40 20:15 20:15 WBC 4.3 L RBC 3.84 L Hgb 12.8 L Hct 38.1 L MCV 99.2 H MCH 33.3 H MCHC 33.6 RDW Std Deviation 46.2 H RDW Coeff of Breanne 12.8 Plt Count 288 MPV 8.9 Immature Gran % (Auto) 0.200 Neut % (Auto) 43.2 L Lymph % (Auto) 37.9 [place]oula % (Auto) 13.6 H Eos % (Auto) 4.4 Baso % (Auto) 0.7 Absolute Neuts (auto) 1.9 L Absolute Lymphs (auto) 1.64 Nucleated RBC % 0 Sodium 137 Potassium 4.1 Chloride 102 Carbon Dioxide 30.0 Anion Gap 5 BUN 10 Creatinine 0.83 Estim Creat Clear Calc 85.53 Est GFR (MDRD) Af Amer 121 Est GFR (MDRD) Non-Af 100 BUN/Creatinine Ratio 12.0 Glucose 98 Calcium 9.0 Total Bilirubin 0.20 AST 26 ALT 40 Alkaline Phosphatase 69 Troponin I High Sens < 3 L Total Protein 7.1 Albumin 3.5 Globulin 3.6 Albumin/Globulin Ratio 1.0 Lipase 150 TSH 12.70 H Free T4 0.48 L Free T3 pg/dL 1.7 L Urine Color Yellow Urine Clarity Clear Urine pH 7.0 Ur Specific [place]idan 1.010 Urine Protein 30 H Urine Glucose (UA) Normal Urine Ketones Negative Urine Occult Blood Negative Urine Nitrite Negative Urine Bilirubin Negative Urine Urobilinogen Normal Ur Leukocyte Esterase 25 H Urine RBC 0 SEEN Urine WBC 0 SEEN Ur Squamous Epith Cells 0 SEEN Urine Bacteria 0 SEEN Urine Mucus 0 SEEN Discharge Plan Triage Chief Complaint: General Illness ED Provider: Ian Grimm Dx/Rx/DC Orders Prescriptions: New levothyroxine [Synthroid] 112 mcg tablet 112 mcg PO DAILY Qty: 30 RF: 0 Continued levothyroxine 112 mcg tablet 112 mcg PO DAILY Qty: 30 RF: 0 No Action citalopram 20 tablet 20 mg PO DAILY RF: 0 loperamide 2 mg Capsule 4 mg PO DAILY RF: 0 risperidone 2 mg Tablet 2 mg PO BID Qty: 60 RF: 0 levofloxacin 500 mg Tablet 500 mg PO 0600 Qty: 7 RF: 0 benztropine 1 mg tablet 1 mg PO BID Qty: 60 RF: 0 risperidone [Risperdal] 2 mg tablet 2 mg PO BID Qty: 60 RF: 0 albuterol sulfate [Proventil HFA] 90 mcg/actuation HFA aerosol inhaler 2 puff inhalation .QID Qty: 8.5 RF: 0 Primary Care Provider: Ronni Dennison Referrals: Ronni Dennison MD [Primary Care Provider] - Disposition Disposition: Home, Self Care
[2021-11-20] MEDS: hydrOXYzine PAM 25 MG Capsule PO (23:18)
[2021-11-20 23:21] VITALS: BP 136/75; PULSE 87; RESP 15; O2SAT 97
== END 2021-11-20 23:23 | disposition home or self-care (01) ==
PROVIDERS: Emergency Provider Student in an Organized Health Care Education/Training Program; PCP Family Medicine; Visit Provider Student in an Organized Health Care Education/Training Program
DX: R53.1 Weakness (principal); E03.9 Hypothyroidism, unspecified; D72.819 Decreased white blood cell count, unspecified; D64.9 Anemia, unspecified; F17.210 Nicotine dependence, cigarettes, uncomplicated; Z79.899 Other long term (current) drug therapy
CPT/HCPCS: 80053; 81001; 83690; 84439; 84443; 84481; 84484; 85025; 93005; 96360; 96361; 99283; J7030; A4216

== ENCOUNTER 2021-11-21 17:30 | Emergency (ER) | payer MEDICARE, SELFPAY ==
[2021-11-21 17:32] VITALS: BP 134/85; PULSE 101; RESP 18; TEMP 36.4; O2SAT 98; BMI 21.2
--- NOTE | 2021-11-21 22:04 | EX.ED.DYSGE1 ---
HPI History of Present Illness Chief Complaint: Fatigue Narrative Narrative: 61-year-old male presenting with chief complaint of insomnia. He was seen and evaluated by myself yesterday for the similar complaint. He was started on hydroxyzine and given his Synthroid which she has not been on for months. The patient has been medically noncompliant and not taking his medications and even when he showed up to his new primary care physician's office he did not mention that he needed refills on his medications. He states that he just forgot. He has not attempted to call them to make any appointments. Even today after being discharged last night he did not call the physician's office. He states he still continues to be unable to sleep. He does state that the hydroxyzine did not help. He has not had any new symptoms. 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 [facility] Medical History Bipolar 1 disorder Home Medications citalopram 20 mg PO DAILY 03/06/19 [History Last Taken Unknown] loperamide 4 mg PO DAILY 08/22/21 [History Last Taken Unknown] albuterol sulfate [Proventil HFA] 2 puff INHALATION .QID #8.5 g 08/25/21 [Rx Last Taken Unknown] benztropine 1 mg PO BID #60 tab 08/25/21 [Rx Last Taken Unknown] levofloxacin 500 mg PO 0600 #7 tab 08/25/21 [Rx Last Taken Unknown] risperidone 2 mg PO BID #60 tab 08/25/21 [Rx Last Taken Unknown] risperidone [Risperdal] 2 mg PO BID #60 tab 08/25/21 [Rx Last Taken Unknown] hydroxyzine pamoate [Vistaril] 25 mg PO QHS #20 cap 11/20/21 [Rx Last Taken Unknown] levothyroxine 112 mcg PO DAILY #30 tab 11/20/21 [Rx Last Taken Unknown] levothyroxine [Synthroid] 112 mcg PO DAILY #30 tab 11/20/21 [Rx Last Taken Unknown] trazodone 100 mg PO QHS PRN #20 tab 11/21/21 [Rx Last Taken Unknown] Allergy/AdvReac Type Severity Reaction Status Date / Time naproxen [From Aleve] Allergy Hives Verified 11/21/21 17:31 Social History Smoking Status: Current every day smoker tobacco type: cigarettes ROS ROS ED ROS Narrative Insomnia Constitutional Constitutional ED: Denies chills or fever(s) Eyes Eyes: Denies blurry vision or change in vision ENT ENT ED: Denies rhinorrhea or sore throat Cardiovascular Cardiovascular: Denies chest pain or palpitations Respiratory/Chest Respiratory/Chest: Denies cough or dyspnea Gastrointestinal Gastrointestinal: Denies abdominal pain, nausea or vomiting Genitourinary Genitourinary ED: Denies dysuria or hematuria Musculoskeletal Musculoskeletal: Denies arthralgias or myalgias Integumentary Denies rash Neurologic Neurologic: Denies headache(s) or paresthesias Psychiatric Psychiatric: Denies anxiety or depression EXAM Physical Exam Const Vital Signs: 11/21/21 17:32 Temperature 97.6 F L Temperature Source Temporal Pulse Rate 101 H Respiratory Rate 18 Blood Pressure 134/85 H Blood Pressure Mean 101 Pulse Ox 98 Oxygen Delivery Method Room Air Positive well nourished General Appearance ED: NAD HEENT Reports moist mucous membranes Negative for trauma Eyes PERRL and EOMs intact bilaterally Resp normal respiratory effort and clear to auscultation bilaterally Cardio regular rate and regular rhythm GI normal to inspection, nondistended, normoactive bowel sounds Neuro oriented x3 and CN's II-XII intact bilaterally Sensorium / Orientation: alert Motor Exam: strength 5/5 throughout Psych mental status grossly normal Skin General Skin Exam: Negative for jaundice MDM MDM MDM Narrative Medical decision making narrative: Patient is alert and awake and not having any new symptoms. He has a history of bipolar disorder but actually states that his activity level and his speech are slower. He does relate that he has had trouble eating recently but has been able to eat and drink. He had a full work-up yesterday and his blood work was all normal with exception of his thyroid studies which were restarted today. He has been medically noncompliant for months. He has not called for follow-up appointment even today after being discharged. He states that the Vistaril I gave him did not help him sleep. He does have his risperidone. He does not appear to be manic and his thought processes appear clear. I spoke with Dr. Seymour Raman who is on-call for Dr. Dennison and she recommended starting trazodone. She states he will put note in the computer system that he needs to be seen in follow-up. Patient was given a prescription that was filled from the emergency room he can take when he gets home. He is counseled that he will need to make follow-up if he needs refills or repeat blood work. He is given return precautions. Impression: 1. Insomnia 2. Medical noncompliance 3. Hypothyroidism 4. History of bipolar disorder Discharge Plan Triage Chief Complaint: Fatigue ED Provider: Ian Grimm Dx/Rx/DC Orders Instructions: ED Insomnia Prescriptions: New trazodone 100 mg tablet 100 mg PO QHS PRN (Reason: insomnia) Qty: 20 RF: 0 No Action citalopram 20 tablet 20 mg PO DAILY RF: 0 loperamide 2 mg Capsule 4 mg PO DAILY RF: 0 risperidone 2 mg Tablet 2 mg PO BID Qty: 60 RF: 0 levofloxacin 500 mg Tablet 500 mg PO 0600 Qty: 7 RF: 0 benztropine 1 mg tablet 1 mg PO BID Qty: 60 RF: 0 risperidone [Risperdal] 2 mg tablet 2 mg PO BID Qty: 60 RF: 0 albuterol sulfate [Proventil HFA] 90 mcg/actuation HFA aerosol inhaler 2 puff inhalation .QID Qty: 8.5 RF: 0 levothyroxine 112 mcg tablet 112 mcg PO DAILY Qty: 30 RF: 0 levothyroxine [Synthroid] 112 mcg tablet 112 mcg PO DAILY Qty: 30 RF: 0 hydroxyzine pamoate [Vistaril] 25 mg capsule 25 mg PO QHS Qty: 20 RF: 0 Primary Care Provider: Ronni Dennison Referrals: Ronni Dennison MD [Primary Care Provider] - Disposition Disposition: Home, Self Care
[2021-11-21 22:50] VITALS: BP 129/87; PULSE 76; RESP 18; O2SAT 95
== END 2021-11-21 22:53 | disposition home or self-care (01) ==
PROVIDERS: Emergency Provider Student in an Organized Health Care Education/Training Program; PCP Family Medicine; Visit Provider Student in an Organized Health Care Education/Training Program
DX: G47.00 Insomnia, unspecified (principal); F31.9 Bipolar disorder, unspecified; E03.9 Hypothyroidism, unspecified; Z91.19 Patient's noncompliance with other medical treatment and regimen; F17.210 Nicotine dependence, cigarettes, uncomplicated; Z79.899 Other long term (current) drug therapy
CPT/HCPCS: 99282